=== PATIENT | male | born 1990 | race African-American/Black ===

== ENCOUNTER 2018-07-14 15:49 | Emergency (ER) | payer OTHER ==
[~2018-07-14] VITALS: Ht 167.6 cm; Wt 63.5 kg
[2018-07-14 16:44] VITALS: BP 117/56
== END 2018-07-14 17:31 | disposition home or self-care (01) ==
LOC: ER 15:55
DX: S16.1XXA Strain of muscle, fascia and tendon at neck level, initial encounter (principal); S60.221A Contusion of right hand, initial encounter; V43.52XA Car driver injured in collision with other type car in traffic accident, initial encounter; Y93.89 Activity, other specified; Y92.410 Unspecified street and highway as the place of occurrence of the external cause; Y99.8 Other external cause status
CPT/HCPCS: 72040